=== PATIENT | female | born 1965 | race Caucasian/White ===

== ENCOUNTER 2018-06-10 19:50 | Inpatient (IN) | payer OTHER, SELFPAY ==
[2018-06-10 20:07] VITALS: BMI 24.6
[2018-06-10 20:09] VITALS: BP 153/97; PULSE 90; RESP 16; TEMP 37; O2SAT 99
[2018-06-10 20:10] VITALS: BMI 24.6
--- NOTE | 2018-06-10 20:34 | PCM.HP.STD ---
History of Present Illness Date of Admission: 06/10/18 Chief Complaint: admitted from [facility] hospital with stone and infection. The patient is a 52 year old Female with elevated WBC and infection at [facility] ER admitted as direct transfer also has obstructing ureteral calculi and reports that has many stones in both kidneys, will do kub tonight strain all urine, pain control. Past Medical History Allergies codeine Allergy (Verified 06/10/18 20:03) Rash Home Medications: Ambulatory Orders Medication Instructions Recorded Calcium Carbonate [Calcium] 600 mg PO DAILY 06/10/18 Potassium Citrate [Potassium 15 meq PO BID 06/10/18 Citrate ER] Surgical History: noncontributory Psychiatric History: No pertinent psych hx DIRECTOR OF QUALITY History: No pertinent DIRECTOR OF QUALITY history Lives: With Family Smoking Status: Never smoker Tobacco Use: Non-smoker Alcohol: None Drugs: None - *Family History Maternal History Items: No pertinent history Review of Systems Constitutional: Denies: Chills, Fever, Weight Change HEENT: Denies: Head Aches, Sinus Congestion, Sinus Drainage Cardiovascular: Denies: Chest Pain, Palpitations Respiratory: Denies: Cough, Shortness of breath at rest, Sputum production Gastrointestinal: Denies: Abdominal Pain, Nausea, Vomiting Genitourinary: Denies: Dysuria Musculoskeletal: Denies: Joint Pain, Joint Tenderness Skin: Denies: Rash, Wounds Neurological: Denies: Numbness, Tingling, Focal weakness Psychiatric: Denies: Anxiety, Depression, Homicidal Ideations, Suicidal Ideations Hematologic/ Lymphatic: Denies: Easy Bruising, Easy Bleeding VTE Information - Inpt Only VTE Present on Admission: No VTE Mechan Device Prophylaxis: SCD's - Physical Exam General: Alert, Oriented x3, Cooperative HEENT: Atraumatic, PERRLA, EOMI, Normocephalic Neck: Supple, No JVD, Negative Carotid Bruits Lungs: Clear to auscultation, Normal air movement Cardiovascular: Regular rate, No murmurs Abdomen: Bowel Sounds Present, Soft, Non Tender Extremities: No edema, Capillary Refill Less than 3 Seconds Skin: No rashes, No breakdown Musculoskeletal: No Tenderness to Palpation of Joints or Extremities Neurological: Cranial nerves II-XII grossly intact Psych/Mental Status: Normal Affect, Appropriate Vital Signs Temp Pulse Resp BP Pulse Ox 98.6 F 90 16 153/97 H 99 06/10/18 20:06/10/18 20:06/10/18 20:09 06/10/18 20:06/10/18 20:09 Oxygen Delivery Method Room Air Weight: 69.2 kg Body Mass Index (BMI) 24.6 Assessment/Plan 52 yo female with infection admit for pain control, iv antibiotic to treat urinary infection has obstructing stone, admit for pain control check kub, will see i am and discuss surgery with patient. strain all urine.
--- NOTE | 2018-06-10 20:37 | HP.PCM_ITS ---
History of Present Illness Date of Admission: 06/10/18 Chief Complaint: admitted from [facility] hospital with stone and infection. The patient is a 52 year old Female with elevated WBC and infection at [facility] ER admitted as direct transfer also has obstructing ureteral calculi and reports that has many stones in both kidneys, will do kub tonight strain all urine, pain control. Past Medical History Allergies codeine Allergy (Verified 06/10/18 20:03) Rash Home Medications: Ambulatory Orders Medication Instructions Recorded Calcium Carbonate [Calcium] 600 mg PO DAILY 06/10/18 Potassium Citrate [Potassium 15 meq PO BID 06/10/18 Citrate ER] Surgical History: noncontributory Psychiatric History: No pertinent psych hx SHAREPOINT ENGINEER History: No pertinent SHAREPOINT ENGINEER history Lives: With Family Smoking Status: Never smoker Tobacco Use: Non-smoker Alcohol: None Drugs: None - *Family History Maternal History Items: No pertinent history Review of Systems Constitutional: Denies: Chills, Fever, Weight Change HEENT: Denies: Head Aches, Sinus Congestion, Sinus Drainage Cardiovascular: Denies: Chest Pain, Palpitations Respiratory: Denies: Cough, Shortness of breath at rest, Sputum production Gastrointestinal: Denies: Abdominal Pain, Nausea, Vomiting Genitourinary: Denies: Dysuria Musculoskeletal: Denies: Joint Pain, Joint Tenderness Skin: Denies: Rash, Wounds Neurological: Denies: Numbness, Tingling, Focal weakness Psychiatric: Denies: Anxiety, Depression, Homicidal Ideations, Suicidal Ideations Hematologic/ Lymphatic: Denies: Easy Bruising, Easy Bleeding VTE Information - Inpt Only VTE Present on Admission: No VTE Mechan Device Prophylaxis: SCD's - Physical Exam General: Alert, Oriented x3, Cooperative HEENT: Atraumatic, PERRLA, EOMI, Normocephalic Neck: Supple, No JVD, Negative Carotid Bruits Lungs: Clear to auscultation, Normal air movement Cardiovascular: Regular rate, No murmurs Abdomen: Bowel Sounds Present, Soft, Non Tender Extremities: No edema, Capillary Refill Less than 3 Seconds Skin: No rashes, No breakdown Musculoskeletal: No Tenderness to Palpation of Joints or Extremities Neurological: Cranial nerves II-XII grossly intact Psych/Mental Status: Normal Affect, Appropriate Vital Signs Temp Pulse Resp BP Pulse Ox 98.6 F 90 16 153/97 H 99 06/10/18 20:06/10/18 20:06/10/18 20:09 06/10/18 20:06/10/18 20:09 Oxygen Delivery Method Room Air Weight: 69.2 kg Body Mass Index (BMI) 24.6 Assessment/Plan 52 yo female with infection admit for pain control, iv antibiotic to treat urinary infection has obstructing stone, admit for pain control check kub, will see i am and discuss surgery with patient. strain all urine.
--- NOTE | 2018-06-10 21:15 | RAD_ITS ---
STUDY: X-RAY - ABDOMEN/PELVIS REASON FOR EXAM: Female, 52 years old. Pain, kidney stones TECHNIQUE: 2 views COMPARISON: None. FINDINGS: Normal visualized lung bases. There is an unremarkable bowel gas pattern. There is no demonstrated free abdominal air. Calcifications over the left renal shadow up to 12 mm. Calcifications over the right renal shadows are noted up to 4 mm. Normal soft tissue structures. Normal visualized osseous structures. RAD/Abdomen Single View IMPRESSION: Calcifications are noted over the renal shadows bilaterally likely related to calculi. Electronically Signed: Jordan Giron DO at 22:47 EST Tel [phone], Service support ,
[2018-06-10] MEDS: 0.45% Normal Saline 1,000 ML 75 ML IV (22:15)
[2018-06-10] MEDS: 0.9% NaCl Peripheral Flush Adult/Peds IV (22:24)
[2018-06-10] MEDS: Acetaminophen 500 MG Tablet PO (22:39)
[2018-06-10] MEDS: Docusate Sodium 100 MG Capsule PO (22:40)
[2018-06-11] VITALS (9 sets, daily range): BP systolic 113–148; BP diastolic 66–96; PULSE 76–115; RESP 14–16; TEMP 36.3–36.8; O2SAT 98–100; BMI 24.6
[2018-06-11] MEDS: Ketorolac 15 MG/ML Vial IV ×3 (00:26→13:10)
[2018-06-11] MEDS: 0.9% NaCl Peripheral Flush Adult/Peds IV (05:07)
[2018-06-11 06:20] LABS: Hematocrit 37.6 % (37-47); Hemoglobin 12.5 g/dl (12.0-15.0); Mean Corp Hgb Conc 33.2 g/gl (32-36); Mean Corpuscular Hgb 29.6 pg (27.0-32.0); Mean Corpuscular Volume 88.9 fL (81-99); Platelet Count 239 K/mm3 (150-450); RBC Distribution Width CV 12.6 % (11.6-14.6); RBC Distribution Width SD 40.1 fl (35.1-43.9); Red Blood Count 4.23 M/mm3 (4.2-5.4); White Blood Count 5.3 K/mm3 (4.4-11.0)
[2018-06-11 06:29] LABS: Scan Indicated on CBC? Y/N NO
[2018-06-11 06:43] LABS: Anion Gap 8 (5-15); BUN 14 mg/dL (7-18); BUN/Creat Ratio 17.1 RATIO (10-20); Calcium,Total 8.4 mg/dL (8.5-10.1); Chloride 110 mmol/L (98-107); Creatinine, Serum 0.82 mg/dL (0.55-1.02); EST Glomerular Filtration Rate 78 mL/min (>60); Est Glom Filt Rate - Afr Amer 95 mL/min (>60); Estimated Creatinine Clearance 75.98 ml/min; Glucose 102 mg/dL (74-106); Sodium Level 144 mmol/L (136-145)
--- NOTE | 2018-06-11 09:45 | CASEMGMT ---
RN CM Face to Face with patient for initial transition planning/care coordination assessment. RN CM introduced self and role at [facility]. Patient lying in bed, alert and oriented, at bedside. Patient willing to participate in assessment and is able to answer all questions appropriately. Care providers, pharmacy, and demographics verified. Patient wishes to discharge home, denies need for home health at this time. Patient states she has no further needs or concerns at this time. CM to follow for discharge planning needs that may arise. PCP: Cruz Caputo Specialists: kaelyn Smith urologist [facility]erred [facility]acy: [facility] Insurance: [employer] Prescription Benefit: Yes Living Will/HPOA: None LNOK: Living Arrangements: Patient lives with in 2 story home, bed and bath on first floor. Patient independent at home. Transportation: Self/ DME/HHC: Patient denies DME at home. Denies needs at discharge. Disposition Plan: Patient to discharge home with family support and follow-up plans in place. Roselyn ALVARADO, RN, CM
--- NOTE | 2018-06-11 10:23 | NURSING ---
Report called to TIERRA Guadalupe in for surgery.
--- NOTE | 2018-06-11 11:06 | DCINST_ITS ---
Discharge Diet: Light diet - advance as tolerated Discharge Activity: Return to Normal Activity Instructions: Treating Kidney Stones: Ureteroscopic Stone Removal, Ureteral Stents Allergies/Adverse Reactions: Allergies codeine Allergy (Verified 06/10/18 20:03) Rash Medications to take at Discharge Calcium Carbonate [Calcium] 600 mg PO DAILY 06/10/18 Potassium Citrate [Potassium Citrate ER] 15 meq PO BID 06/10/18 Test Results: Test results from this visit will be discussed in further detail at your follow- up appointment, if applicable. Please Follow Up With: Gil Way MD When: please call to make an appointment, to remove stent
[2018-06-11] MEDS: Cefazolin 1 GM/50 ML BAG IV (11:15)
--- NOTE | 2018-06-11 11:50 | PCM.OPRPT ---
Report of Operation Date of Procedure: 06/11/18 Pre-Operative Diagnosis: Right distal ureteral calculi with high-grade obstruction Post-Operative Diagnosis: Same Surgery/Procedure Performed:: Cystoscopy, right retrograde pyelogram, radiographic interpretation of fluoroscopic images, balloon dilation of the right ureter, right ureteroscopy laser lithotripsy of stone and right stent placement, manipulation fo stone Description of Surgical Findings:: 52-year-old female was admitted with severe intractable pain in the right kidney from a small stone in the distal right ureter causing hydronephrosis she also had an infection was being treated with this. Today we plan to take her to the operating room for cystoscopy ureteroscopy laser lithotripsy of the stone and stent placement. 52-year-old female taken back to the operating room at the smooth induction of general anesthesia she was placed in dorsolithotomy position, the vagina and perineum and urethral area were prepped and draped in usual sterile fashion, next inspection she had a significant cystocele significant rectocele and some ligament prolapse of the bladder, I then went into the bladder with a 21 [place] rigid cystourethroscope the urethra was severely angulated so I did look pretty much to straight down to get into the bladder and then looked inside the bladder identified the right and left ureteral orifice no tumors were seen within the bladder trigone is normal. I then cannulated the right ureteral orifice with a Glidewire and a Pollack catheter. A 0.035 wire initially I could not get past the stone but after lobe and a manipulation of the stone then I was able to get past the stone. Once the wire was in place then advanced the balloon dilator next the wire and balloon dilated the distal ureter. Then I left the wire in place and next the wire went in with a SlimLine 7 [place] semirigid ureteroscope very difficult to get into the distal ureter because of her anatomy and severe prolapse bladder once I got into the ureter I had to flip the scope upside down another get the laser to hit the stone right and then I started lasering the stone. Perform laser lithotripsy. Used 0.6 J and 6 Hz the stone was lasered successfully and the stone fragments passed into the bladder I then left the wire in place I went over the wire with the flexible ureteroscope, performed a retrograde pyelogram, inspected the upper pole midpole lower pole the kidneyno other significant fragments were seen work my way down the ureter no injury or trauma perforation of the ureter was seen at the wire in place. And then over the 0.035 wire I advanced a 4.5 [place] 26 cm length stent left the leaving the string on it. Once the stent was in good position then I pulled the wire the stent coiled properly in the kidney and bladder trimmed the string but I left it long enough so that could be extracted easily in the office. She also has significant bladder and rectocele prolapse we could consider referral to gynecology for repair and she also has another stone in the left kidney that needs to be treated so we will set her up for shockwave lithotripsy of the left kidney stones at a later date. Type of Anesthesia:: General Specimen's removed: none Drains: 4.5fr x 26 cm stent - Admit VTE Documentation VTE Present on Admission: No VTE Mechan Device Prophylaxis: SCD's
--- NOTE | 2018-06-11 11:55 | OP.PCM_ITS ---
Report of Operation Date of Procedure: 06/11/18 Pre-Operative Diagnosis: Right distal ureteral calculi with high-grade obs truction Post-Operative Diagnosis: Same Surgery/Procedure Performed:: Cystoscopy, right retrograde pyelogram, radiographic interpretation of fluoroscopic images, balloon dilation of the right ureter, right ureteroscopy laser lithotripsy of stone and right stent placement, manipulation fo stone Description of Surgical Findings:: 52-year-old female was admitted with severe intractable pain in the right kidney from a small stone in the distal right ureter causing hydronephrosis she also had an infection was being treated with this. Today we plan to take her to the operating room for cystoscopy ureteroscopy laser lithotripsy of the stone and stent placement. 52-year-old female taken back to the operating room at the smooth induction of general anesthesia she was placed in dorsolithotomy position, the vagina and perineum and urethral area were prepped and draped in usual sterile fashion, next inspection she had a significant cystocele significant rectocele and some ligament prolapse of the bladder, I then went into the bladder with a 21 [place] rigid cystourethroscope the urethra was severely angulated so I did look pretty much to straight down to get into the bladder and then looked inside the bladder identified the right and left ureteral orifice no tumors were seen within the bladder trigone is normal. I then cannulated the right ureteral orifice with a Glidewire and a Pollack catheter. A 0.035 wire initially I could not get past the stone but after lobe and a manipulation of the stone then I was able to get past the stone. Once the wire was in place then advanced the balloon dilator next the wire and balloon dilated the distal ureter. Then I left the wire in place and next the wire went in with a SlimLine 7 [place] semirigid ureteroscope very difficult to get into the distal ureter because of her anatomy and severe prolapse bladder once I got into the ureter I had to flip the scope upside down another get the laser to hit the stone right and then I started lasering the stone. Perform laser lithotripsy. Used 0.6 J and 6 Hz the stone was lasered successfully and the stone fragments passed into the bladder I then left the wire in place I went over the wire with the flexible ureteroscope, performed a retrograde pyelogram, inspected the upper pole midpole lower pole the kidneyno other significant fragments were seen work my way down the ureter no injury or trauma perforation of the ureter was seen at the wire in place. And then over the 0.035 wire I advanced a 4.5 [place] 26 cm length stent left the leaving the string on it. Once the stent was in good position then I pulled the wire the stent coiled properly in the kidney and bladder trimmed the string but I left it long enough so that could be extracted easily in the office. She also has significant bladder and rectocele prolapse we could consider referral to gynecology for repair and she also has another stone in the left kidney that needs to be treated so we will set her up for shockwave lithotripsy of the left kidney stones at a later date. Type of Anesthesia:: General Specimen's removed: none Drains: 4.5fr x 26 cm stent - Admit VTE Documentation VTE Present on Admission: No VTE Mechan Device Prophylaxis: SCD's
== END 2018-06-11 15:13 | disposition home or self-care (01) | DRG 661 ==
PROVIDERS: Admitting Provider Urology; Visit Provider Urology
PROC: 0TF68ZZ Fragmentation in Right Ureter, Via Natural or Artificial Opening Endoscopic (ICD-10-PCS; CPT 52353; principal; 2018-06-11 17:25)
DX: N13.6 Pyonephrosis (principal); N81.10 Cystocele, unspecified; N81.6 Rectocele
CPT/HCPCS: 36415; 74018; 76000; 80048; 85027; A4216; C1769; J2405

== ENCOUNTER → 2018-06-16 12:48 | Outpatient (CLI) | payer OTHER, SELFPAY ==
[2018-06-11 10:13] VITALS: BMI 24.6
--- NOTE | 2018-06-16 13:10 | RAD_ITS ---
STUDY: X-RAY - ABDOMEN/PELVIS REASON FOR EXAM: Female, 52 years old. Evaluate for nephrolithiasis TECHNIQUE: Two AP supine views of the abdomen and pelvis. COMPARISON: 06/10/2018 FINDINGS: There is a moderate amount of colonic fecal material. There is no demonstrated free abdominal air. Right ureteral stent is identified. Grossly unchanged right-sided and left-sided nephrolithiasis. No evidence of free air. Normal soft tissue structures. Normal visualized osseous structures. RAD/Abdomen Single View IMPRESSION: Right-sided ureteral stent. No evidence of significant change in bilateral nephrolithiasis Electronically Signed: Chaitanya Pearl DO at 13:37 EST Tel , Service support ,
== END ==
PROVIDERS: Family Provider Family Medicine; PCP Family Medicine; Referring Provider Nurse Practitioner Adult Health; Visit Provider Nurse Practitioner Adult Health
DX: N20.0 Calculus of kidney (principal)
CPT/HCPCS: 74018

== ENCOUNTER 2018-07-09 11:13 | Day surgery (SDC) | payer OTHER, SELFPAY ==
[2018-06-11 10:13] VITALS: BMI 24.6
--- NOTE | 2018-07-08 14:48 | PCM.HP.BLA ---
History and Physical Date of Admission: 07/09/18 I am here for a post operative visit. HPI: MOISES CARDENAS is a 52 year-old female patient who was referred by RICO ANDUJAR M.D. who is here for a post operative visit. 52 yo female doing well post op. Some discomfort from stent. Plan is for ESWL of stone in left kidney. She brings in disk of CT from [place] done 06/10/18, it shows multiple stones bilat kidneys. Has dx of medullary sponge kidney. 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 She has vaginal prolapse. Delivered 5 heavy babies. Had eval by Dr Smith. Pt not ready for surgery for prolapse at this time. The surgery she had done was right ureteral stone laser, right stent. Her surgery was done 06/11/2018. She has not had post operative nausea. She has not had vomiting. She has not had post operative fever. She has not had post operative chills. She does have a good appetite. Her bowels are moving normally. ALLERGIES: Codeine MEDICATIONS: None PSH: Cysto/Uretero W/Lithotripsy - 06/11/2018 Cystoscopy Retrogrades - 06/11/2018 NON- PSH: Patient not documented to have received pneumococcal vaccination Salpingo Oophorectomy PMH: Frequency of micturition Nocturia Personal history of urinary (tract) infections Personal history of urinary calculi Unspecified urinary incontinence NON- PMH: Medullary cystic kidney FAMILY HISTORY: High Blood Pressure - Runs in Family SOCIAL HISTORY: Marital Status: Preferred Language: Albanian; Ethnicity: Not Or ; Race: White Current Smoking Status: Patient has never smoked. Tobacco Use Assessment Completed: Used Tobacco in last 30 days? Does not use smokeless tobacco. Does drink. Does not use drugs. Drinks 2 caffeinated drinks per day. Has not had a blood transfusion. REVIEW OF SYSTEMS: Constitutional: Patient denies fever, chills, weight loss, and weight gain. Eyes: Patient denies blurry vision, cataracts, and vision problems. Ears, Nose, Mouth, Throat: Patient denies hearing loss, sinus infections, sleep apnea, and nasal stuffiness. Cardiovascular: Patient denies chest pains, swollen ankles, irregular heartbeat, and pacemaker/defibrillator. Respiratory: Patient denies shortness of breath, wheezing, use oxygen, cpap at night., and copd. Gastrointestinal: Patient denies abdominal pain, nausea/vomiting, and change in bowels. Genitourinary: Patient reports get up at night to void, leakage of urine, frequent urinary tract infections, and history of stones. Patient denies frequent urination, urinary retention, blood in urine, difficulty starting stream, weak stream, and bedwetting. Musculoskeletal: Patient denies sore muscles, back pain, gout, and arthritis. Integumentary/Skin: Patient denies rash, persistent itching, and skin cancer history. Neurological: Patient denies numbness, dizziness, stroke/tia, and history of falling/unsteadiness.. Hematologic/Lymphatic: Patient denies swollen glands, abnormal bleeding, transfusion history, and blood clots/dvt/pulmonary embolism. VITAL SIGNS: 06/16/2018 01:48 PM Weight 152 lb / 68.95 kg Height 66 in / 167.64 cm BP 160/100 mmHg BMI 24.5 kg/m? MULTI-SYSTEM PHYSICAL EXAMINATION: Constitutional: Well-nourished. No physical deformities. Normally developed. Good grooming. Neck: Neck symmetrical, not swollen. Normal tracheal position. Respiratory: No labored breathing, no use of accessory muscles. Neurologic / Psychiatric: Oriented to time, oriented to place, oriented to person. No depression, no anxiety, no agitation. Gastrointestinal: No mass, no tenderness, no rigidity, non obese abdomen. Eyes: Normal conjunctivae. Normal eyelids. Musculoskeletal: Normal gait PAST DATA REVIEWED: Source Of History: Patient Records Review: Previous Hospital Records Urine Test Review: Urinalysis X-Ray Review: KUB: Reviewed Films. Discussed With Patient. clear along stent C.T. Abdomen/Pelvis: Reviewed Films. Reviewed Report. Discussed With Patient. many stones bilat kidneys PROCEDURES: Removal Stent with String - [id number] The patient was placed in the supine position. The stent was gently removed in its entirety by using the string which was present at the urethral meatus. The procedure was well-tolerated and without complications. Instructions were given to call the office immediately for bloody urine, difficulty urinating, urinary retention, painful or frequent urination, fever, chills, nausea, vomiting or other illness. The patient stated that they understood these instructions and would comply with them. [id number] without cysto- stent removal. 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 She is scheduled for ESWL left kidney. I will leave CT disk for Dr Way to review--multiple calculi bilat kidneys. Will update bloodwork (Pomerene) and [facility].
[2018-07-09] VITALS (7 sets, daily range): BP systolic 111–135; BP diastolic 73–96; PULSE 76–92; RESP 16–18; TEMP 37.1–37.3; O2SAT 99–100; BMI 23.8
--- NOTE | 2018-07-09 11:15 | RAD_ITS ---
STUDY: X-RAY - ABDOMEN/PELVIS REASON FOR EXAM: Female, 52 years old. Left-sided renal calculi. Prelithotripsy. TECHNIQUE: Two AP supine views of the abdomen and pelvis. COMPARISON: Comparison is made with prior study dated June 16, 2018. FINDINGS: The previously seen right double-J stent catheter has been removed. There is a moderate amount of colonic fecal material. Stable appearance of the bilateral intrarenal calculi. The largest calculus is in the upper pole of the left kidney measuring 1 cm. Normal soft tissue structures. Normal visualized osseous structures. RAD/Abdomen Single View IMPRESSION: Stable appearance of the bilateral nephrolithiasis. Electronically Signed: Ladarius Goyal, at 12:29 EDT , Service support ,
[2018-07-09] MEDS: Cefazolin 2 GM in 0.9% Normal Saline 100 ML IV (14:25)
--- NOTE | 2018-07-09 14:29 | DCINST_ITS ---
Discharge Diet: Light diet - advance as tolerated Discharge Activity: Return to Normal Activity Call your doctor if your incision/area has: Continuous Slow Oozing, Sudden Increased Bleeding, Increased Pain/ Swelling, Increased Redness, Foul Smelling Discharge, Swelling at the incision site Call your doctor if you observe: Fever of 101 or Higher Suture Line Care: Avoid Pulling/Pushing, Avoid Pinching/Bending Instructions: Shock Wave Lithotripsy Allergies/Adverse Reactions: Allergies codeine Allergy (Verified 07/03/18 13:41) Rash Medications to take at Discharge NK 07/03/18 Primary Care Physician: Femi Caputo MD [Primary Care Provider] - Test Results: Test results from this visit will be discussed in further detail at your follow- up appointment, if applicable. Please Follow Up With: Gil Way MD When: please call to make an appointment.
--- NOTE | 2018-07-09 15:38 | PCM.OPRPT ---
Report of Operation Date of Procedure: 07/09/18 Pre-Operative Diagnosis: Left renal calculi multiple Post-Operative Diagnosis: The same Surgery/Procedure Performed:: Left extracorporeal shockwave lithotripsy Description of Surgical Findings:: 52-year-old female with multiple stone fragments in the left kidney today she presents to the operating room for shockwave lithotripsy warned the patient is possible he may have to place a stent depending how the stones break up. 52-year-old female taken back to the operating room with smooth induction of general anesthesia she was placed supine on the table and then in the lithotripter table, we position the patient, placed water in the lithotripter machine we then came in with the fluoroscopy to identify the stone in the upper pole of the kidney midpole and lower pole we started with fragmentation of the upper pole of the kidney first we were going at a rate of 60 shocks per minute power up to 7, after about 1500 shockwaves a stone in the upper pole broke up a little tiny pieces there went to the midpole continued shocking those and then we went to the lower pole and can pleaded the shockwave lithotripsy of the lower pole of the left kidney at the conclusion of the procedure I was satisfied with how the stones were broken up with decided not to place a stent patient anesthetic is currently being reversed. Type of Anesthesia:: General Drains: no stent - Admit VTE Documentation VTE Present on Admission: No VTE Mechan Device Prophylaxis: SCD's
[2018-07-09] MEDS: HYDROcodone Bitartrate/Apap 5/325 Tablet PO (17:31)
== END 2018-07-09 17:54 | disposition home or self-care (01) ==
LOC: SDC 11:13 → AC 11:15
PROVIDERS: Family Provider Family Medicine; PCP Family Medicine; Referring Provider Urology; Visit Provider Urology
PROC: (CPT 50590; principal; 2018-07-09 13:25)
DX: N20.0 Calculus of kidney (principal); Q61.5 Medullary cystic kidney; Z87.442 Personal history of urinary calculi
CPT/HCPCS: 50590; 74018; J7120; J2405

== ENCOUNTER → 2018-08-07 15:22 | Outpatient (CLI) | payer OTHER, SELFPAY ==
[2018-07-09 11:50] VITALS: BMI 23.8
--- NOTE | 2018-08-07 15:25 | RAD_ITS ---
STUDY: X-RAY - ABDOMEN/PELVIS REASON FOR EXAM: Female, 52 years old. RECENT LEFT SIDED LITHOTRIPSY, KNOWN RIGHT SIDE CALCULI, PAIN TECHNIQUE: Single AP view of the abdomen / pelvis. COMPARISON: 07/09/2018. FINDINGS: Small calcifications consistent with renal stones are seen in the right upper pole and mid right kidney. The largest measures approximately 5 mm greatest dimension. On the left, there may be 2 or 3 very tiny calcifications in the left lower pole. No definite calcifications along the course of the ureters or in the bladder. There is an unremarkable bowel gas pattern. There is no demonstrated free abdominal air. The visualized liver, spleen and kidneys are grossly normal in size and morphology. Normal soft tissue structures. Normal visualized osseous structures. RAD/Abdomen Single View IMPRESSION: 2 or 3 small right renal stones as much as 5 mm size. Possibly 2 or 3 tiny renal stones in the left lower pole. Electronically Signed: Juan Bobby MD at 21:35 EDT , Service support ,
== END ==
PROVIDERS: Family Provider Family Medicine; PCP Family Medicine; Referring Provider Urology; Visit Provider Urology
DX: N20.0 Calculus of kidney (principal)
CPT/HCPCS: 74018

== ENCOUNTER 2021-04-24 15:38 | Outpatient (CLI) | payer OTHER, SELFPAY ==
--- NOTE | 2021-04-24 15:43 | RAD_ITS ---
EXAM: XR ABDOMEN, 1 VIEW CLINICAL INDICATION: KUB- CALCULUS OF KIDNEY TECHNIQUE: Frontal supine view of the abdomen/pelvis. This report was created using [employer] report generation technology. COMPARISON: 08.10.18 FINDINGS: LOWER THORAX: No acute pathology. GASTROINTESTINAL TRACT: Unremarkable. Non-obstructive. No bowel or stomach distention. ORGANS: There are calculi overlying the right and left renal outline. No organomegaly. BONES/JOINTS: No acute pathology. SOFT TISSUES: No acute pathology. RAD/Abdomen Single View IMPRESSION: There are calculi overlying the right and left renal outline. Electronically Signed: Trevon Rodriguez MD at 15:59 EST , Service support ,
== END 2021-04-24 23:59 | disposition short-term general hospital (02) ==
PROVIDERS: PCP Family Medicine; Referring Provider Urology; Visit Provider Urology
DX: N20.0 Calculus of kidney (principal)
CPT/HCPCS: 74018